=== PATIENT | female | born 1970 | race Caucasian/White ===

== ENCOUNTER 2016-09-25 22:13 | Emergency (ER) | payer MEDICAID ==
[~2016-09-25] VITALS: Ht 162.6 cm; Wt 89.8 kg
[2016-09-25 22:38] VITALS: BP_SYST 147
[2016-09-26] MEDS ORDERED: cefTRIAXone 1 GM in LIDOCAINE 1%, 20 ML MDV 2.1 ML IM ONE (01:45)
[2016-09-26 02:07] VITALS: BP_SYST 128
== END 2016-09-26 02:07 | disposition home or self-care (01) ==
LOC: SED 22:13
DX: L29.9 Pruritus, unspecified (principal); R21 Rash and other nonspecific skin eruption
CPT/HCPCS: 96372; 99283; J0696; J2001

== ENCOUNTER 2018-05-12 09:47 | Emergency (ER) | payer MEDICAID ==
[~2018-05-12] VITALS: Ht 162.6 cm; Wt 97.5 kg
[2018-05-12 09:56] VITALS: BP_SYST 152
[2018-05-12 11:55] VITALS: BP_SYST 152
== END 2018-05-12 11:55 | disposition home or self-care (01) ==
LOC: SED 09:47
DX: M25.572 Pain in left ankle and joints of left foot (principal); R03.0 Elevated blood-pressure reading, without diagnosis of hypertension
CPT/HCPCS: 99283